=== PATIENT | female | born 1985 | race Caucasian/White ===

== ENCOUNTER 2016-08-10 05:42 | Emergency (ER) | payer BC ==
[2016-08-10] MEDS ORDERED: KETOROLAC TROMETHAMINE 30 MG/ML VIAL IV ONE (05:55)
[2016-08-10] MEDS ORDERED: NORMAL SALINE 1,000 ML IV ONE (05:56)
[2016-08-10] MEDS ORDERED: KETOROLAC TROMETHAMINE 30 MG/ML VIAL ONE (05:58)
--- NOTE | 2016-08-10 06:05 | ERNOTE ---
ER Female HPI Stated Complaint: PAIN Presenting Symptoms: other - flank pain Time Seen by Provider: 08/10/16 05:53 Source: patient, family Immunizations: IMMUNIZATION HX Immunizations Up to Date Yes History of Influenza Vaccine Yes Allergies/Adverse Reactions: Allergies No Known Allergies Allergy (Unverified 02/14/14 13:40) Home Medications: HOME MEDICATIONS ALPRAZolam [Xanax] 0.25 mg PO TID PRN 02/14/14 [Last Taken Unknown] Aspirin/Acetaminophen/Caffeine [Excedrin Migraine Caplet] 1 each PO PRN PRN [Last Taken Unknown] traMADol HCL [Ultram] 50 - 100 mg PO QID PRN #20 tab 08/10/16 [Last Taken Unknown] - History of Present Illness Narrative: Flank pain on the left awoke her from sleep Timing: Present: intermittent Quality: Present: moderate, stabbing Onset Location: Present: right flank Radiation: Present: groin Activities at Onset: Present: sleep Prior Abdominal Problems: Present: none Review of Systems - Review of Systems Constitutional: Present: no symptoms reported EYE: Present: no symptoms reported ENT: Present: no symptoms reported Respiratory: Present: no symptoms reported Cardiology: Present: no symptoms reported Gastrointestinal/Abdominal: Present: nausea Genitourinary: Present: frequency - past 2 days. Absent: dysuria Musculoskeletal: Present: back pain - stabbing yesterday, then spontaneously resolved Skin: Present: no symptoms reported Neurological: Present: no symptoms reported Endocrine: Present: no symptoms reported Hematologic/Lymphatic: Present: no symptoms reported Psych: Present: no symptoms reported - Patient's Past Medical History Patient History - Medical: No pertinent hx Patient History - Cardiac/Respiratory: No pertinent hx Patient History - Cancer: No Hx of Cancer Patient History - Surgical Procedures: Tubal Ligation Patient History - Other: None LMP (females 10-50): 1 month - Social History Living Situations: alone Abuse History: No History of abuse Psych History: Hx of Anxiety Smoking Status: Current every day smoker Have you smoked in the past 12 months: No Do you dip or chew tobacco: No Alcohol Use: occasionally Drug Use: none - Immunizations Immunizations Up to Date: Yes History of Influenza Vaccine: Yes Physical Exam - Physical Exam General Appearance: Present: wd/wn, alert, mild distress Eye Exam: Normal inspection: bilateral Ears, Nose, Throat: Present: normal ENT inspection, hearing grossly normal Neck: Present: normal inspection, supple Respiratory: Present: no respiratory distress, no accessory muscle use Gastrointestinal/Abdominal: Present: nontender, nondistended, soft Back Exam: Present: no vertebral tenderness, CVA tenderness (R) Extremity Exam: Present: normal inspection, non-tender, normal range of motion Neurological Exam: Present: alert, oriented, no motor/sensory deficits Skin Exam: Present: normal color, warm/dry ED Progress - Results and Orders Patient's Lab Results:: I have reviewed the patient's lab results. Results and Orders: Laboratory Tests 08/10/16 08/10/16 08/10/16 06:23 06:23 06:25 WBC 7.5 Hgb 11.6 L Hct 33.4 L Plt Count 180 Sodium 141 Potassium 3.9 Chloride 107 H Carbon Dioxide 25.5 BUN 13 Creatinine 0.63 Random Glucose 94 Calcium 8.6 Urine Color Yellow Urine Appearance Cloudy Urine pH 6.0 Ur Specific [place] 1.025 Urine Protein 15 H Urine Glucose (UA) Negative Urine Ketones Negative Urine Blood 250 H Urine Nitrate Negative Urine Bilirubin Negative Prot Sulfosalicylic Acd Negative Urine Urobilinogen Normal Ur Leukocyte Esterase 100 H Urine RBC 10-25 H Urine WBC 10-25 H Ur Epithelial Cells >25 H Urine Bacteria 3+ H Urine Mucus Many - 3+ H Urine Culture Comments Culture to follow Urine HCG, Qual 08/10/16 06:25 WBC Hgb Hct Plt Count Sodium Potassium Chloride Carbon Dioxide BUN Creatinine Random Glucose Calcium Urine Color Urine Appearance Urine pH Ur Specific [place] Urine Protein Urine Glucose (UA) Urine Ketones Urine Blood Urine Nitrate Urine Bilirubin Prot Sulfosalicylic Acd Urine Urobilinogen Ur Leukocyte Esterase Urine RBC Urine WBC Ur Epithelial Cells Urine Bacteria Urine Mucus Urine Culture Comments Urine HCG, Qual Negative - Vital Signs Patient's Vital Signs:: I have reviewed the patient's vital signs. Vital Signs: Vital Signs 08/10/16 05:42 Temperature 35.7 C L Pulse Rate 79 Respiratory 18 Rate Blood Pressure 111/67 O2 Sat by Pulse 99 Oximetry - CT/Ultrasound CT/Ultrasound Narrative: CT abd/pelvis stone protocol: possible distal ureteral stone left UVJ 3mm in size. - Progress/Reassessment Chief Complaint: Genitourinary Problem Progress:: Pain free at discharge Departure Clinical Impression: Kidney stone - Departure Disposition: Home self-care Condition: Good Instructions: Kidney Stones, [id number] Additional Instructions: drink 2 liters of water daily. Strain all your urine until you catch a stone. bring that back to the hospital lab Prescriptions: traMADol HCL [Ultram] 50 - 100 mg PO QID PRN #20 tab PRN Reason: Pain
[2016-08-10 06:28] LABS: Hematocrit 33.4 % (37.0-47.0); Hemoglobin 11.6 gm/dL (12.5-16.0); Mean Cell Volume 91.8 fl (78-100); Mean Corpuscular Hemoglobin 31.9 pg (27-31); Mean Corpuscular Hgb Conc 34.7 g/dl (32-36); Mean Platelet Volume 9.7 fl (6.0-9.5); Neutrophil # 4.2 K/mm3 (1.3-6.0); Neutrophil % 56.1 % (42-75.0); Platelet Count 180 K/mm3 (150-450); Red Blood Count 3.64 M/mm3 (4.2-5.4); Red Cell Distribution Width 12.1 % (11.5-14.0); White Blood Count 7.5 K/mm3 (4.0-10.5)
[2016-08-10 06:33] LABS: Urine Bilirubin Negative (NEGATIVE); Urine Blood 250 /ul (NEGATIVE); Urine Ketone Negative (NEGATIVE); Urine Nitrite Negative (NEGATIVE); Urine Protein 15 mg/dL (NEGATIVE); Urine Specific Gravity 1.025 SP.GR. (1.005-1.010); Urine Urobilinogen Normal (NORMAL)
[2016-08-10 06:35] LABS: Anion Gap 12.4 mmol/L (6.8-13.8); BUN/Creatinine Ratio 20.6 (9.0-21.6); Calcium * 8.6 mg/dL (7.9-10.9); Carbon Dioxide 25.5 mmol/L (24-32.6); Estimated Creat Clear 109.7; Potassium 3.9 mmol/L (3.4-4.6)
[2016-08-10 06:47] LABS: Urine Color Yellow
[2016-08-10 06:48] LABS: Urine Appearance Cloudy; Urine Bacteria 3+; Urine Mucus Many - 3+
[2016-08-10 07:24] VITALS: BP 112/86
== END 2016-08-10 08:18 | disposition home or self-care (01) ==
LOC: ER 05:42
DX: N20.0 Calculus of kidney (principal); F17.210 Nicotine dependence, cigarettes, uncomplicated